=== PATIENT | female | born 2005 | race Caucasian/White ===

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

== ENCOUNTER → 2025-03-14 | Outpatient (CLI) | payer BC, SELFPAY ==
[2025-03-14 19:12] LABS: Iron 94 ug/dL (50-170)
[2025-03-14 19:48] LABS: Vitamin B12 677 pg/mL (180-914); Vitamin D,25 Hydroxy 20.9 ng/mL (30-100)
== END | disposition home or self-care (01) ==
LOC: MFPLAB 13:50
PROVIDERS: PCP Family Medicine
DX: R53.83 Other fatigue (principal)
CPT/HCPCS: 36415; 82306; 82607; 83540; 84443